=== PATIENT | female | born 2000 ===

== ENCOUNTER 2023-02-19 12:14 | Outpatient (CLI) ==
[~2023-02-19] VITALS: Ht 162.6 cm; Wt 78.9 kg
[2023-02-19] MEDS ORDERED: PRENTAB9 PO (12:45)
[2023-02-19] MEDS ORDERED: HOME MED LIST COMPLETE! XX SCH (12:50)
[2023-02-19 12:51] VITALS: BP 127/72; O2SAT 98
== END 2023-02-19 14:04 | disposition home or self-care (01) ==
LOC: M LDO 12:14
PROVIDERS: ATTEND Obstetrics & Gynecology
DX: O26.892 Other specified pregnancy related conditions, second trimester (principal); R10.2 Pelvic and perineal pain; Z3A.25 25 weeks gestation of pregnancy
CPT/HCPCS: 59025; G0463

== ENCOUNTER 2023-06-04 09:59 | Inpatient (IN) | payer OTHER ==
[~2023-06-04] VITALS: Ht 162.6 cm; Wt 86.0 kg
[2023-06-04] VITALS (20 sets, daily range): BP systolic 114–145; BP diastolic 63–104; TEMP 97.1; O2SAT 97–98
[~2023-06-04 09:59] MED LIST: PRENTAB9 PO
[2023-06-04] MEDS ORDERED: HOME MED LIST COMPLETE! XX SCH (10:25)
[2023-06-04] MEDS ORDERED: TRANEXAMIC ACID INJection 1,000 MG in NS 100 ML IV PRN (11:05)
[2023-06-04] MEDS ORDERED: OXYTOCIN INJ 10UNITS/ML 1ML VIAL IM PRN (11:05)
[2023-06-04] MEDS ORDERED: CARBOPROST TROMETHAMINE 250 MCG/ML AMP IM PRN (11:05)
[2023-06-04] MEDS ORDERED: OXYTOCIN DRIP 30 UNITS in IV 1 EA IV PRN ×6 (11:05)
[2023-06-04] MEDS ORDERED: LIDOCAINE 1% MDV 20ML VIAL INFIL PRN (11:05)
[2023-06-04] MEDS ORDERED: METHYLERGONOVINE MALEATE 0.2MG/ML 1ML VIAL IM PRN (11:05)
[2023-06-04] MEDS ORDERED: LR 1,000 ML IV SCH ×2 (11:05)
[2023-06-04] MEDS ORDERED: OXYTOCIN DRIP 30 UNITS in IV 1 EA IV SCH ×5 (11:05→19:20)
[2023-06-04 12:02] LABS: HEMATOCRIT 33.9 % (36.0-47.0); HEMOGLOBIN 11.1 g/dl (12.0-15.5); MEAN CORPUSCULAR HEMOGLOBIN 25.9 pg (27.0-33.0); MEAN CORPUSCULAR HGB CONC 32.7 g/dl (32.0-36.5); PLATELET COUNT, AUTOMATED 244 10^3/uL (150-450); RED BLOOD COUNT 4.29 10^6/uL (4.00-5.40); WHITE BLOOD COUNT 12.3 10^3/uL (4.0-10.0)
[2023-06-04 12:08] LABS: APPEARANCE, URINE TURBID (CLEAR); BACTERIA, URINE AUTO NEGATIVE (NEGATIVE); BILIRUBIN, URINE AUTO NEGATIVE (NEGATIVE); BLOOD, URINE BLOOD 2+ (NEGATIVE); COLOR, URINE AMBER (YELLOW); GLUCOSE, URINE (UA) AUTO NEGATIVE (NEGATIVE); KETONE, URINE AUTO TRACE mg/dL (NEGATIVE); LEUKOCYTE ESTERASE, URINE AUTO 3+ (NEGATIVE); MUCUS, URINE SMALL (NEGATIVE); NITRITE, URINE AUTO NEGATIVE (NEGATIVE); PROTEIN, URINE AUTO 2+ mg/dL (NEGATIVE); RBC, URINE AUTO 14 /HPF (0-3); SPECIFIC GRAVITY URINE AUTO 1.028 (1.002-1.035); SQUAMOUS EPITHELIAL CELL UR AU 63 /HPF (0-6); UROBILINOGEN, URINE AUTO 0.2 mg/dL (0.0-2.0); WBC, URINE AUTO 60 /HPF (0-3)
[2023-06-04 12:24] LABS: TOTAL PROTEIN,RANDOM URINE 76.4 MG/DL (0.0-14.0)
[2023-06-04 12:26] LABS: URIC ACID 4.5 MG/DL (3.1-7.8)
[2023-06-04 12:29] LABS: CREATININE,RANDOM URINE 151.9 MG/DL
[2023-06-04 12:29] LABS: LDH LACTATE DEHYDROGENASE 194 U/L (120-246)
[2023-06-04 12:30] LABS: ALT/SGPT < 9 U/L (7.0-40); AST/SGOT 12 U/L (<34); BILIRUBIN,TOTAL 0.3 MG/DL (0.3-1.2); CREATININE FOR GFR 0.49 MG/DL (0.55-1.30); GLOMERULAR FILTRATION RATE > 60.0 (>60)
[2023-06-04] MEDS: LACTATED RINGER'S 1000 ML IV STA ×2 (17:14→17:16)
[2023-06-04] MEDS ORDERED: diphenhydrAMINE 50MG/ML VIAL IV PRN ×2 (17:15→19:55)
[2023-06-04] MEDS ORDERED: ONDANSETRON 4MG 2ML VIAL IV PRN ×3 (17:15→19:55)
[2023-06-04] MEDS ORDERED: ePHEDrine SULFATE 25 MG/5 ML(5MG/ML) SYRINGE IVP PRN (17:15)
[2023-06-04] MEDS ORDERED: NALOXONE INJ 0.4MG/1ML VIAL IV PRN ×3 (17:15→19:55)
[2023-06-04] MEDS ORDERED: FENTANYL/ROPIVACAINE/NACL BAG 100 ML EPIDURAL SCH (17:15)
[2023-06-04] MEDS ORDERED: EPIDURAL/PCA KEYS XX PRN (17:15)
[2023-06-04] MEDS ORDERED: LR 500 ML IV PRN (17:15)
[2023-06-04] MEDS ORDERED: BICITRA 30ML SOLN UDC PO ONE (17:40)
[2023-06-04] MEDS ORDERED: ceFAZolin SOD 2 GM in IV 1 EA IV ONE (17:40)
[2023-06-04] MEDS ORDERED: MORPHINE PRES-FREE INJ 10 MG/10 ML VIAL As Ordered ONE (18:21)
[2023-06-04] MEDS ORDERED: KETOROLAC 60MG 2ML VIAL As Ordered ONE (18:21)
[2023-06-04] MEDS ORDERED: ONDANSETRON 4MG 2ML VIAL As Ordered ONE (18:21)
[2023-06-04] MEDS ORDERED: ACETAMINOPHEN 1000MG 100ML IV BAG As Ordered ONE (18:25)
[2023-06-04 18:46] LABS: CORD GAS ABE A -4.1; CORD GAS ABE V -4.8; CORD GAS HCO3 A 25.1 MMOL/L; CORD GAS HCO3 V 20.9 MMOL/L; CORD GAS O2 SAT A 47.6 %; CORD GAS O2 SAT V 75.5 %; CORD GAS PCO2 V 41.2 mmHg; CORD GAS PH A 7.218 UNITS; CORD GAS PH V 7.324 UNITS; CORD GAS PO2 A 23.4 mmHg; CORD GAS PO2 V 32.5 mmHg; CORD GAS SBC A 19.9 MMOL/L; CORD GAS TCO2 V 22.2 MMOL/L
[2023-06-04] MEDS ORDERED: ePHEDrine SULFATE 25 MG/5 ML(5MG/ML) SYRINGE As Ordered ONE (18:52)
[2023-06-04] MEDS ORDERED: PHENYLephrine 500MCG 5ML (100MCG/ML) SYRINGE As Ordered ONE (18:52)
[2023-06-04] MEDS ORDERED: RHOGAM 300MCG (1500IU) INJ IM SCH (19:20)
[2023-06-04] MEDS ORDERED: MORPHINE 2 MG/ML 1ML VIAL IV PRN (19:20)
[2023-06-04] MEDS ORDERED: oxyCODONE 5MG TAB PO PRN ×2 (19:20→19:55)
[2023-06-04] MEDS ORDERED: MOM 30ML SUSPENSION UDC PO PRN (19:20)
[2023-06-04] MEDS ORDERED: DOCUSATE SODIUM 100MG CAPSULE PO PRN (19:20)
[2023-06-04] MEDS ORDERED: SIMETHICONE 80MG CHEW TAB PO PRN (19:20)
[2023-06-04] MEDS ORDERED: METOCLOPRAMIDE INJ 10MG/2ML VIAL IV PRN ×2 (19:20→19:55)
[2023-06-04] MEDS ORDERED: **NOTE PATIENT COMMENT** MISC XX SCH (19:55)
[2023-06-04] MEDS ORDERED: fentaNYL 100 MCG/2 ML INJECTION IV PRN (19:55)
[2023-06-04] MEDS ORDERED: MEPERIDINE 25 MG/ML 1ML VIAL IV PRN (19:55)
[2023-06-04] MEDS ORDERED: ACETAMINOPHEN 500 MG TAB PO SCH (20:00)
[2023-06-04] MEDS: ACETAMINOPHEN 500 MG TAB PO SCH (23:19)
[2023-06-04] MEDS: SLF 3 ML SYR IV SCH (23:19)
[2023-06-04] MEDS: KETOROLAC 30 MG/ML 1ML VIAL IV SCH (23:20)
[2023-06-05] VITALS (7 sets, daily range): BP systolic 108–132; BP diastolic 65–78; O2SAT 96–99
[2023-06-05] MEDS: LR 1,000 ML IV SCH ×2 (00:53→03:20)
[2023-06-05] MEDS: SLF 3 ML SYR IV SCH ×2 (03:55→13:20)
[2023-06-05] MEDS: KETOROLAC 30 MG/ML 1ML VIAL IV SCH ×2 (05:54→13:19)
[2023-06-05] MEDS: ACETAMINOPHEN 500 MG TAB PO SCH ×3 (05:54→17:39)
[2023-06-05] MEDS ORDERED: LR 1,000 ML IV ONE ×2 (06:15→06:30)
[2023-06-05 06:47] LABS: HEMOGLOBIN 9.8 g/dl (12.0-15.5); MEAN CORPUSCULAR HEMOGLOBIN 25.7 pg (27.0-33.0); MEAN CORPUSCULAR HGB CONC 32.7 g/dl (32.0-36.5); MEAN CORPUSCULAR VOLUME 78.7 fl (80.0-96.0); PLATELET COUNT, AUTOMATED 210 10^3/uL (150-450); RED BLOOD COUNT 3.81 10^6/uL (4.00-5.40)
[2023-06-05] MEDS: PRENATAL VITAMINS CHEWABLE TABLET PO SCH (08:21)
[2023-06-06] MEDS: ACETAMINOPHEN 500 MG TAB PO SCH ×3 (00:03→11:36)
[2023-06-06 02:27] VITALS: BP 124/79; O2SAT 100
[2023-06-06] MEDS: oxyCODONE 5MG TAB PO PRN ×2 (05:49→11:36)
[2023-06-06 06:00] VITALS: BP 119/74; O2SAT 98
[2023-06-06] MEDS ORDERED: COLA100C5 PO (06:23)
[2023-06-06] MEDS ORDERED: IBUP-1022 PO (06:23)
[2023-06-06] MEDS ORDERED: OXYC-517 PO (06:23)
[2023-06-06] MEDS ORDERED: ACET-683 PO (06:23)
[2023-06-06] MEDS ORDERED: MEASLES,MUMPS,RUBELLA VACCINE INJ (MMR-II) SC.IMMUN ONE (09:00)
[2023-06-06] MEDS: PRENATAL VITAMINS CHEWABLE TABLET PO SCH (09:09)
[2023-06-06 10:00] VITALS: BP 120/80; O2SAT 98
[2023-06-06] MEDS ORDERED: INFLUENZA QUADRIVALENT PF VACCINE 0.5ML SYRINGE IM.IMMUN ONE (11:00)
== END 2023-06-06 13:50 | disposition home or self-care (01) | DRG 773 ==
LOC: M LDI 09:59 → M OBS 21:05
PROVIDERS: ADMIT Obstetrics & Gynecology; ATTEND Obstetrics & Gynecology
PROC: 3E033VJ Introduction of Other Hormone into Peripheral Vein, Percutaneous Approach (ICD-10-PCS; 2023-06-04)
PROC: 10D00Z1 Extraction of Products of Conception, Low, Open Approach (ICD-10-PCS; principal; 2023-06-04 17:41)
DX: O14.14 Severe pre-eclampsia complicating childbirth (principal); O48.0 Post-term pregnancy; O34.211 Maternal care for low transverse scar from previous cesarean delivery; O76 Abnormality in fetal heart rate and rhythm complicating labor and delivery; O69.81X0 Labor and delivery complicated by cord around neck, without compression, not applicable or unspecified; Z37.0 Single live birth; Z3A.40 40 weeks gestation of pregnancy

== ENCOUNTER 2023-06-06 23:19 | Emergency (ER) | payer OTHER ==
[~2023-06-06] VITALS: Ht 162.6 cm; Wt 84.5 kg
[~2023-06-06 23:19] MED LIST changes: +ACET-683 PO; +COLA100C5 PO; +IBUP-1022 PO; +OXYC-517 PO
[2023-06-06 23:20] VITALS: BP 147/83; TEMP 97; O2SAT 98
== END 2023-06-07 03:00 | disposition left against medical advice (07) ==
LOC: M ED 23:19
DX: Z53.21 Procedure and treatment not carried out due to patient leaving prior to being seen by health care provider (principal)